=== PATIENT | female | born 1965 | race Caucasian/White ===

== ENCOUNTER 2016-07-21 21:21 | Emergency (ER) | payer OTHER ==
[~2016-07-21] VITALS: Ht 167.6 cm; Wt 65.9 kg
[~2016-07-21 21:21] MED LIST: AMITIZA8 MICROGRA PO; ANTIVERT25 MG PO; ATIVAN1 MG PO; B COMPLETE1 EACH PO; DAILY VALUE1 EACH PO; ERGOCALCIF8000 UNIT/ SL; FISH OIL 1,0001 EA10 PO; FISH OIL CONC1 EACH PO; FLONASE16 G1 BOTH NARES; FLUTICASONE PRO16 GM; IRON325 M1 PO; LEVETIRACETAM500 MG PO; MOTRIN IB200 MG PO; MULTIVITAMIN1 EAC2 PO; PAROXETINE HCL40 MG; PAXIL10 MG PO; PROBIOTIC1 EAC1 PO; VITAMIN D1000 UNIT PO
[2016-07-21 21:43] VITALS: BP 122/88
[2016-07-21] MEDS ORDERED: NORCO 5/3251 TABLET PO (22:14)
== END 2016-07-21 22:47 | disposition home or self-care (01) ==
LOC: EME 21:21
DX: S93.401A Sprain of unspecified ligament of right ankle, initial encounter (principal); S70.01XA Contusion of right hip, initial encounter; W10.9XXA Fall (on) (from) unspecified stairs and steps, initial encounter; Z88.7 Allergy status to serum and vaccine; M25.471 Effusion, right ankle
CPT/HCPCS: 73502; 73590; 73610; 99281; 99284

== ENCOUNTER 2017-01-13 18:37 | Emergency (ER) | payer OTHER ==
[~2017-01-13] VITALS: Ht 167.6 cm; Wt 71.4 kg
[~2017-01-13 18:37] MED LIST changes: +NORCO 5/3251 TABLET PO
[2017-01-13] MEDS ORDERED: NORCO 7.5/321 TABLET PO (21:01)
[2017-01-13] MEDS ORDERED: MOTRIN800 MG PO (21:01)
[2017-01-13 21:27] VITALS: BP 112/80
== END 2017-01-13 21:28 | disposition home or self-care (01) ==
LOC: EME 18:37
PROC: 2W38X1Z Immobilization of Right Upper Extremity using Splint (ICD-10-PCS; principal; 2017-01-13)
DX: S62.646A Nondisplaced fracture of proximal phalanx of right little finger, initial encounter for closed fracture (principal); S66.911A Strain of unspecified muscle, fascia and tendon at wrist and hand level, right hand, initial encounter; W01.0XXA Fall on same level from slipping, tripping and stumbling without subsequent striking against object, initial encounter; Z88.7 Allergy status to serum and vaccine
CPT/HCPCS: 73130; 99281; 99284